=== PATIENT | female | born 1965 | race Two or more races ===

== ENCOUNTER 2021-01-15 18:39 | Emergency (ER) | payer OTHER ==
[~2021-01-15] VITALS: Ht 162.6 cm; Wt 81.6 kg
[~2021-01-15 18:39] MED LIST: HYZAAR 100-121 UDTAB
[2021-01-15] MEDS ORDERED: PLAVIX75 MG PO (18:51)
[2021-01-15] MEDS ORDERED: LIPITOR40 M1 PO (18:51)
[2021-01-15] MEDS ORDERED: DIALYVITE 3,001 EACH PO (18:52)
[2021-01-16] MEDS ORDERED: CIPRO500 MG PO (03:37)
[2021-01-16] MEDS ORDERED: KETO10TA2 PO (03:37)
== END 2021-01-16 03:45 | disposition home or self-care (01) ==
LOC: ER 18:39
DX: N39.0 Urinary tract infection, site not specified (principal); R10.32 Left lower quadrant pain; R10.2 Pelvic and perineal pain

== ENCOUNTER 2022-09-18 09:38 | Emergency (ER) | payer OTHER ==
[~2022-09-18] VITALS: Ht 170.2 cm; Wt 88.5 kg
[~2022-09-18 09:38] MED LIST changes: +CIPRO500 MG PO; +DIALYVITE 3,001 EACH PO; +KETO10TA2 PO; +LIPITOR40 M1 PO; +PLAVIX75 MG PO
== END 2022-09-18 14:14 | disposition home or self-care (01) ==
LOC: ER 09:38
DX: U07.1 COVID-19 (principal); J10.1 Influenza due to other identified influenza virus with other respiratory manifestations; I10 Essential (primary) hypertension; J01.00 Acute maxillary sinusitis, unspecified; M19.90 Unspecified osteoarthritis, unspecified site

== ENCOUNTER 2024-06-29 12:00 | Emergency (ER) | payer OTHER ==
[~2024-06-29] VITALS: Ht 157.5 cm; Wt 81.6 kg
[2024-06-29] MEDS ORDERED: KETOROLAC TROMETHAMINE 60 MG VIAL IM ONE (12:45)
[2024-06-29 13:07] LABS: HEMATOCRIT 38.7 % (36.0-45.00); HEMOGLOBIN 12.8 g/dL (12.0-15.00); MEAN CELL VOLUME 81.5 fL (80.00-100.00); MEAN CORPUSCULAR HEMOGLOBIN 26.9 pg (27.00-32.0); PLATELET COUNT 220 K/uL (150-450); RED BLOOD COUNT 4.74 M/uL (4.00-6.00); RED CELL DISTRIBUTION WIDTH 14.7 % (11.5-14.5)
[2024-06-29 13:42] LABS: PH,URINE 5.5 (5.0-8.0); URINE APPEARANCE Clear; URINE BILIRRUBIN Negative (NEGATIVE); URINE BLOOD Negative; URINE COLOR Dark Yellow; URINE GLUCOSE Negative (NEGATIVE); URINE KETONE Trace (NEGATIVE); URINE LEUKOCYTE Small; URINE NITRATE Negative
[2024-06-29 13:43] LABS: ALBUMIN 3.5 gm/dL (3.4-5.0); BILIRUBIN TOTAL 0.46 mg/dL (0.3-1.2); CALCIUM 9.4 mg/dL (8.5-10.1); CREATININE SERUM 0.98 mg/dL (0.55-1.02); GFR 58.09; GLOBULINA 4.1 G/DL (2.4-3.5); POTASSIUM 3.67 mEq/L (3.5-5.1); TOTAL PROTEIN 7.6 gm/dL (6.4-8.2)
[2024-06-29 13:48] LABS: URINE BACTERIA 4177.6 uL (0.0-1933); URINE CAST 1.67 uL (0.0-1.40); URINE EPITHELIAL CELLS 77.9 uL (0.0-38.8); URINE RBC 11.4 uL (0.0-20.8); URINE WBC 69.4 uL (0.0-23.2)
[2024-06-29 14:11] LABS: URINE PROTEIN 100 (NEGATIVE)
[2024-06-29 14:13] LABS: URINE CRYSTALS FEW /HPF
[2024-06-29] MEDS ORDERED: BACTRIM DS TAB1 EACH PO (15:47)
[2024-06-29] MEDS ORDERED: TAMS0.4C PO (15:47)
[2024-06-29] MEDS ORDERED: PEPCID AC20 MG PO (15:47)
== END 2024-06-29 16:16 | disposition home or self-care (01) ==
LOC: ER 12:02
PROVIDERS: General Practice
DX: N20.0 Calculus of kidney (principal); I10 Essential (primary) hypertension

== ENCOUNTER 2024-07-24 08:37 | Emergency (ER) | payer OTHER ==
[~2024-07-24] VITALS: Ht 167.6 cm; Wt 81.6 kg
[~2024-07-24 08:37] MED LIST changes: +BACTRIM DS TAB1 EACH PO; +PEPCID AC20 MG PO; +TAMS0.4C PO
[2024-07-24] MEDS ORDERED: KETOROLAC TROMETHAMINE 60 MG VIAL IM ONE (09:15)
[2024-07-24] MEDS ORDERED: FAMOtidine 10 MG/ML (4ML VIAL) IV ONE (09:15)
[2024-07-24] MEDS ORDERED: CEFTRIAXONE SODIUM 1,000 MG VIAL IV ONE (09:15)
[2024-07-24] MEDS ORDERED: TAMSULOSIN HCL 0.4 MG CAP PO ONE (09:15)
[2024-07-24 09:51] LABS: HEMATOCRIT 37.7 % (36.0-45.00); HEMOGLOBIN 12.1 g/dL (12.0-15.00); MEAN CELL VOLUME 81.4 fL (80.00-100.00); MEAN CORPUSCULAR HEMOGLOBIN 26.2 pg (27.00-32.0); MEAN CORPUSCULAR HGB CONC 32.1 g/dl (32.0-36.0); PLATELET COUNT 174 K/uL (150-450); RED BLOOD COUNT 4.63 M/uL (4.00-6.00); RED CELL DISTRIBUTION WIDTH 15.1 % (11.5-14.5)
[2024-07-24 10:05] LABS: ALBUMIN 3.5 gm/dL (3.4-5.0); BILIRUBIN TOTAL 0.49 mg/dL (0.3-1.2); CALCIUM 9.3 mg/dL (8.5-10.1); CREATININE SERUM 1.16 mg/dL (0.55-1.02); GFR 47.82; GLOBULINA 4.3 G/DL (2.4-3.5); POTASSIUM 3.37 mEq/L (3.5-5.1); TOTAL PROTEIN 7.8 gm/dL (6.4-8.2)
[2024-07-24 12:06] LABS: URINE APPEARANCE Clear; URINE BILIRRUBIN Negative (NEGATIVE); URINE BLOOD Negative; URINE COLOR Yellow; URINE GLUCOSE Negative (NEGATIVE); URINE KETONE 15 (NEGATIVE); URINE LEUKOCYTE Trace; URINE NITRATE Negative; URINE UROBILINOGEN 0.2 E.U./dl
[2024-07-24 12:10] LABS: URINE BACTERIA 2463.1 uL (0.0-1933); URINE EPITHELIAL CELLS 56.1 uL (0.0-38.8); URINE RBC 6.2 uL (0.0-20.8); URINE WBC 15.9 uL (0.0-23.2)
[2024-07-24 12:27] LABS: URINE CAST 0.45 uL (0.0-1.40); URINE PROTEIN 100 (NEGATIVE)
[2024-07-24] MEDS ORDERED: ZOFRAN8 MG PO (13:59)
== END 2024-07-24 14:24 | disposition home or self-care (01) ==
LOC: ER 08:37
PROVIDERS: General Practice
DX: R10.9 Unspecified abdominal pain (principal); N39.0 Urinary tract infection, site not specified; A90 Dengue fever [classical dengue]
CPT/HCPCS: 36415; 74177; 96365; 96372; 99284; J0696; J1885; J3490; Q9965